=== PATIENT | male | born 1990 | race Caucasian/White ===

== ENCOUNTER 2018-01-16 02:45 | Emergency (ER) | payer OTHER, SELFPAY | END 2018-01-16 20:02 | LOC: ERS 02:45 | DX: Z02.89 Encounter for other administrative examinations (principal) | CPT/HCPCS: 99282 ==

== ENCOUNTER 2018-05-16 11:31 | Emergency (ER) | payer SELFPAY | END 2018-05-16 12:28 | disposition home or self-care (01) | LOC: ERS 11:31 | DX: S00.01XA Abrasion of scalp, initial encounter (principal); L03.811 Cellulitis of head [any part, except face]; X58.XXXA Exposure to other specified factors, initial encounter | CPT/HCPCS: 99283 ==

== ENCOUNTER 2023-08-28 21:28 | Emergency (ER) | payer OTHER, SELFPAY | END 2023-08-28 23:19 | disposition home or self-care (01) | LOC: ERS 21:28 | DX: S91.114A Laceration without foreign body of right lesser toe(s) without damage to nail, initial encounter (principal); X58.XXXA Exposure to other specified factors, initial encounter | CPT/HCPCS: 99282 ==